=== PATIENT | female | born 2005 | race Caucasian/White ===

== ENCOUNTER → 2024-05-03 | Outpatient (CLI) | payer OTHER | LOC: M PLALAB 11:41 | PROVIDERS: ATTEND Specialist | DX: Z34.03 Encounter for supervision of normal first pregnancy, third trimester (principal); Z3A.00 Weeks of gestation of pregnancy not specified ==

== ENCOUNTER 2024-05-07 11:23 | Outpatient (CLI) | payer OTHER ==
[~2024-05-07] VITALS: Ht 170.2 cm; Wt 72.0 kg
[2024-05-07 11:40] VITALS: BP 121/78
[2024-05-07] MEDS ORDERED: HOME MED LIST COMPLETE! XX SCH (11:45)
[2024-05-07 13:59] VITALS: BP 106/60
== END 2024-05-07 14:13 | disposition home or self-care (01) ==
LOC: M LDO 11:23
PROVIDERS: ATTEND Obstetrics & Gynecology
DX: O47.03 False labor before 37 completed weeks of gestation, third trimester (principal); Z3A.34 34 weeks gestation of pregnancy
CPT/HCPCS: 59025; G0463

== ENCOUNTER → 2024-05-14 | Outpatient (CLI) | payer OTHER | LOC: M RAD 07:21 | PROVIDERS: ATTEND Obstetrics & Gynecology | DX: O26.843 Uterine size-date discrepancy, third trimester (principal) ==

== ENCOUNTER → 2024-05-24 | Outpatient (REF) | payer OTHER | LOC: M PLALAB 15:20 | PROVIDERS: ATTEND Obstetrics & Gynecology | DX: Z36.89 Encounter for other specified antenatal screening (principal); Z3A.37 37 weeks gestation of pregnancy ==

== ENCOUNTER 2024-06-08 17:59 | Inpatient (IN) | payer OTHER ==
[~2024-06-08] VITALS: Ht 170.2 cm; Wt 74.9 kg
[2024-06-08] VITALS (11 sets, daily range): BP systolic 100–145; BP diastolic 62–85; O2SAT 95
[2024-06-08] MEDS ORDERED: TRANEXAMIC ACID INJection 1,000 MG in NS 100 ML IV PRN (20:25)
[2024-06-08] MEDS ORDERED: METHYLERGONOVINE MALEATE 0.2MG/ML 1ML VIAL IM PRN (20:25)
[2024-06-08] MEDS ORDERED: LIDOCAINE 1% MDV 20ML VIAL INFIL PRN (20:25)
[2024-06-08] MEDS ORDERED: CARBOPROST TROMETHAMINE 250 MCG/ML AMP IM PRN (20:25)
[2024-06-08] MEDS ORDERED: OXYTOCIN DRIP 30 UNITS in IV 1 EA IV PRN (20:25)
[2024-06-08] MEDS: PENICILLIN G POTASSIUM 5 MU IV 5 MU in DEXTROSE 5% (D5W) MINI-BAG PLU 100 ML IV STA (20:30)
[2024-06-08] MEDS: LACTATED RINGER'S 1000 ML IV STA (20:36)
[2024-06-08 20:38] LABS: HEMATOCRIT 30.6 % (36.0-47.0); HEMOGLOBIN 9.9 g/dl (12.0-15.5); MEAN CORPUSCULAR HEMOGLOBIN 24.7 pg (27.0-33.0); MEAN CORPUSCULAR HGB CONC 32.4 g/dl (32.0-36.5); MEAN CORPUSCULAR VOLUME 76.3 fl (80.0-96.0); PLATELET COUNT, AUTOMATED 224 10^3/uL (150-450); RED BLOOD COUNT 4.01 10^6/uL (4.00-5.40); WHITE BLOOD COUNT 13.2 10^3/uL (4.0-10.0)
[2024-06-08] MEDS ORDERED: diphenhydrAMINE 50MG/ML VIAL IV PRN (20:50)
[2024-06-08] MEDS ORDERED: EPIDURAL/PCA KEYS XX PRN (20:50)
[2024-06-08] MEDS ORDERED: ePHEDrine SULFATE 25 MG/5 ML(5MG/ML) SYRINGE IVP PRN (20:50)
[2024-06-08] MEDS ORDERED: NALOXONE INJ 0.4MG/1ML VIAL IV PRN (20:50)
[2024-06-08] MEDS ORDERED: LR 500 ML IV PRN (20:50)
[2024-06-08] MEDS ORDERED: ONDANSETRON 4MG 2ML VIAL IV PRN (20:50)
[2024-06-08] MEDS: FENTANYL/ROPIVACAINE/NACL BAG 100 ML EPIDURAL SCH (21:13)
[2024-06-08] MEDS: LR 1,000 ML IV SCH (21:17)
[2024-06-08 21:34] LABS: HIV 1&2 SCREEN NEGATIVE (NEGATIVE)
[2024-06-08 21:41] LABS: HEPATITIS C VIRUS ABY INDEX 0.16 INDEX (<0.8)
[2024-06-09] VITALS (9 sets, daily range): BP systolic 107–129; BP diastolic 53–75; O2SAT 97–98
[2024-06-09] MEDS: PEN G POT 3,000,000 UNIT/50 ML 3,000,000 UNIT in IV 1 EA IV SCH (00:42)
[2024-06-09] MEDS ORDERED: LR 1,000 ML IV SCH (00:50)
[2024-06-09] MEDS ORDERED: DIBUCAINE 1% OINTMENT 30GM TOP PRN (00:50)
[2024-06-09] MEDS ORDERED: ONDANSETRON 4MG 2ML VIAL IV PRN (00:50)
[2024-06-09] MEDS ORDERED: ANUSOL HC CREAM 30GM TOP PRN (00:50)
[2024-06-09] MEDS ORDERED: RHOGAM 300MCG (1500IU) INJ IM SCH (00:50)
[2024-06-09] MEDS: OXYTOCIN DRIP 30 UNITS in IV 1 EA IV SCH (00:50)
[2024-06-09] MEDS: PRENATAL VITAMINS CHEWABLE TABLET PO SCH (09:38)
[2024-06-09] MEDS: ACETAMINOPHEN 500 MG TAB PO PRN (11:21)
[2024-06-09] MEDS ORDERED: FLUZONE VACCINE TRIVALENT PF(2024-25) 0.5ML SYRINGE IM.IMMUN ONE (12:00)
[2024-06-09] MEDS: ACETAMINOPHEN 325 MG TAB PO PRN (17:09)
[2024-06-09] MEDS: IBUPROFEN 800 MG TAB PO PRN (19:32)
[2024-06-09] MEDS: DOCUSATE SODIUM 100MG CAPSULE PO PRN (20:23)
[2024-06-10 05:52] VITALS: BP 104/64; O2SAT 98
[2024-06-10] MEDS ORDERED: FLUZONE VACCINE TRIVALENT PF(2024-25) 0.5ML SYRINGE IM.IMMUN ONE ×2 (09:00)
[2024-06-10] MEDS: IBUPROFEN 600MG TAB PO PRN (15:08)
[2024-06-10 18:00] VITALS: BP 115/70; O2SAT 98
[2024-06-11 06:00] VITALS: BP 131/87; O2SAT 100
[2024-06-11] MEDS ORDERED: MEASLES,MUMPS,RUBELLA VACCINE INJ (MMR-II) SC.IMMUN ONE (09:00)
[2024-06-11] MEDS: FLUZONE VACCINE TRIVALENT PF(2024-25) 0.5ML SYRINGE IM.IMMUN ONE (09:12)
[2024-06-11] MEDS ORDERED: ACET-683 PO (14:01)
[2024-06-11] MEDS ORDERED: IBUP-1022 PO (14:01)
[2024-06-11] MEDS ORDERED: COLA100C5 PO (14:01)
== END 2024-06-11 15:49 | disposition home or self-care (01) | DRG 807 ==
LOC: M LDO 17:59 → M LDI 20:06 → M OBS 06-09 04:15
PROVIDERS: ADMIT Obstetrics & Gynecology; ATTEND Obstetrics & Gynecology
PROC: 10E0XZZ Delivery of Products of Conception, External Approach (ICD-10-PCS; principal; 2024-06-09)
PROC: 0HQ9XZZ Repair Perineum Skin, External Approach (ICD-10-PCS; 2024-06-09)
PROC: 10907ZC Drainage of Amniotic Fluid, Therapeutic from Products of Conception, Via Natural or Artificial Opening (ICD-10-PCS; 2024-06-09)
DX: O99.824 Streptococcus B carrier state complicating childbirth (principal); Z37.0 Single live birth; Z3A.39 39 weeks gestation of pregnancy; O70.0 First degree perineal laceration during delivery

== ENCOUNTER → 2025-03-03 | Outpatient (CLI) | payer OTHER ==
[~2025-03-03] MED LIST: ACET-683 PO; COLA100C5 PO; IBUP600T42 PO
[2025-03-03 17:52] LABS: PLATELET COUNT, AUTOMATED 242 10^3/uL (150-450)
[2025-03-03 18:15] LABS: GLUCOSE CHALLENGE TEST 1 HOUR 89 MG/DL (LESS THAN 140)
[2025-03-03 18:47] LABS: HIV 1&2 SCREEN NEGATIVE (NEGATIVE)
[2025-03-03 18:55] LABS: HEPATITIS C VIRUS ABY INDEX 0.03 INDEX (<0.8)
[2025-03-03 19:56] LABS: Trichomonas vaginalis (AMP) NOT DETECTED (NEGATIVE)
[2025-03-03 20:19] LABS: GC DNA AMPLIFICATION NEGATIVE (NEGATIVE)
== END ==
LOC: M PLALAB 13:26
PROVIDERS: ATTEND Obstetrics & Gynecology
DX: Z34.80 Encounter for supervision of other normal pregnancy, unspecified trimester (principal)

== ENCOUNTER → 2025-05-14 | Outpatient (REF) | payer OTHER | LOC: M SFHCWAGY 12:58 | PROVIDERS: ATTEND Advanced Practice Midwife | DX: Z36.85 Encounter for antenatal screening for Streptococcus B (principal); Z3A.36 36 weeks gestation of pregnancy ==